=== PATIENT | female | born 1975 | race Caucasian/White ===

== ENCOUNTER 2021-10-28 07:15 | Day surgery (SDC) | payer OTHER ==
[2021-10-28] MEDS ORDERED: Tylenol #3 PO (11:12)
[2021-10-28] MEDS ORDERED: NAPR500T14 PO (11:12)
[2021-10-28] MEDS ORDERED: MORGIDOX100 MG PO (11:12)
== END 2021-10-28 14:20 | disposition home or self-care (01) ==
LOC: CIR.AMB 07:15
PROVIDERS: ATTEND Obstetrics & Gynecology
DX: D25.0 Submucous leiomyoma of uterus (principal); N84.0 Polyp of corpus uteri; Z30.2 Encounter for sterilization; N92.5 Other specified irregular menstruation; E66.9 Obesity, unspecified